=== PATIENT | male | born 1990 | race Caucasian/White ===

== ENCOUNTER → 2016-11-20 | Outpatient (CLI) | payer OTHER ==
[~2016-11-20] MED LIST: NAPR500T PO
--- NOTE | 2016-11-20 14:27 | REP ---
Clinical: Trauma. Technique: AP, lateral, bilateral oblique views of the right hand. Findings: A boxer's fracture involving the very distal aspect of the fifth metacarpal bone is appreciated with volar angulation and overlying soft tissue swelling. A subcutaneous emphysema. Remainder examination appears normal. Impression: Boxer's fracture. Signed by Shawn Nava MD 11/20/2016 02:18 P
== END ==
LOC: M LRY 13:45
PROVIDERS: ATTEND Nurse Practitioner Family
DX: S62.366A Nondisplaced fracture of neck of fifth metacarpal bone, right hand, initial encounter for closed fracture (principal); X58.XXXA Exposure to other specified factors, initial encounter; Y93.9 Activity, unspecified; Y92.9 Unspecified place or not applicable; Y99.8 Other external cause status

== ENCOUNTER 2016-11-21 14:41 | Emergency (ER) | payer OTHER, SELFPAY ==
[~2016-11-21] VITALS: Ht 180.3 cm; Wt 65.9 kg
[2016-11-21 14:41] VITALS: BP 137/70
[2016-11-21] MEDS ORDERED: NAPR500T PO (16:02)
== END 2016-11-21 16:16 | disposition home or self-care (01) ==
LOC: M ED 14:41
DX: S62.91XA Unspecified fracture of right hand, initial encounter for closed fracture (principal); W22.09XA Striking against other stationary object, initial encounter; Y92.099 Unspecified place in other non-institutional residence as the place of occurrence of the external cause; Y93.89 Activity, other specified; Y99.9 Unspecified external cause status

== ENCOUNTER → 2020-07-29 | Outpatient (CLI) | payer OTHER, SELFPAY ==
[~2020-07-29] MED LIST changes: +NAPR-837 PO; -NAPR500T PO
== END ==
LOC: M OUTALCOH 08:29
PROVIDERS: ATTEND Psychiatry & Neurology Psychiatry
DX: F12.20 Cannabis dependence, uncomplicated (principal)

== ENCOUNTER → 2020-09-03 | Outpatient (RCR) | payer MEDICAID | LOC: M OUTALCOH 08-08 15:22 | PROVIDERS: ATTEND Psychiatry & Neurology Psychiatry | DX: F12.20 Cannabis dependence, uncomplicated (principal); Z72.0 Tobacco use ==

== ENCOUNTER 2020-09-25 09:48 | Emergency (ER) | payer MEDICAID, OTHER ==
[~2020-09-25] VITALS: Ht 180.3 cm; Wt 63.8 kg
[2020-09-25 09:48] VITALS: BP 121/62
== END 2020-09-25 10:39 | disposition home or self-care (01) ==
LOC: M ED 09:48
DX: M79.671 Pain in right foot (principal)

== ENCOUNTER 2020-09-30 15:18 | Outpatient (RCR) | payer MEDICAID | END 2020-10-04 | LOC: M OUTALCOH 15:18 | PROVIDERS: ATTEND Psychiatry & Neurology Psychiatry | DX: F12.20 Cannabis dependence, uncomplicated (principal); Z72.0 Tobacco use ==

== ENCOUNTER → 2020-10-27 | Outpatient (CLI) | payer OTHER ==
[~2020-10-27] MED LIST changes: +PROHANCE 279.3MG/ML 15ML VIAL As Ordered ONE
--- NOTE | 2020-10-27 10:13 | REP ---
INDICATION: RT FOOT PAIN SOFT TISSUE MASS BOTTOM FOOT. COMPARISON: None. TECHNIQUE: Sagittal T2 fat suppressed and proton density. Coronal proton density, STIR and fat suppressed proton density. Axial fat suppressed proton density and T1 before and after intravenous gadolinium 13 cc of ProHance was administered. FINDINGS: The technologist has placed skin markers surrounding the clinical region of interest which is on the plantar surface of the foot at the level of the head of the 4th metatarsal. In the deep subcutanea within the area of the markers placed by the technologist there is an oval-shaped 0.7 x 0.9 by 1.3 cm sized solid nodule which enhances after the administration of intravenous gadolinium. This is relatively well-circumscribed and is confined to the deep subcutanea. The cortical and marrow signal seen throughout the examination is within normal limits. There is no joint effusion. All imaged flexor and extensor tendons are intact and of normal appearing low signal throughout. IMPRESSION: There is a small enhancing nodule seen within the plantar surface of the right foot as described above. The etiology of this is uncertain. Clinical correlation is necessary. <Electronically signed by Ifeanyi Connolly > 10/27/20 [id number]
== END ==
LOC: M RAD 10-13 13:34
PROVIDERS: ATTEND Podiatrist
DX: R22.41 Localized swelling, mass and lump, right lower limb (principal)
CPT/HCPCS: 73720; A9576

== ENCOUNTER 2020-11-03 13:00 | Outpatient (RCR) | payer MEDICAID ==
[~2020-11-03 13:00] MED LIST changes: -PROHANCE 279.3MG/ML 15ML VIAL As Ordered ONE
== END 2020-11-04 ==
LOC: M OUTALCOH 13:00
PROVIDERS: ATTEND Psychiatry & Neurology Psychiatry
DX: F12.20 Cannabis dependence, uncomplicated (principal); Z72.0 Tobacco use

== ENCOUNTER 2020-12-03 08:45 | Outpatient (RCR) | payer MEDICAID | END 2020-12-04 | LOC: M OUTALCOH 08:45 | PROVIDERS: ATTEND Psychiatry & Neurology Psychiatry | DX: F12.20 Cannabis dependence, uncomplicated (principal); Z72.0 Tobacco use ==

== ENCOUNTER 2021-01-02 08:40 | Outpatient (RCR) | payer MEDICAID | END 2021-01-04 | LOC: M OUTALCOH 08:40 | PROVIDERS: ATTEND Psychiatry & Neurology Psychiatry | DX: F12.20 Cannabis dependence, uncomplicated (principal); Z72.0 Tobacco use ==

== ENCOUNTER 2021-01-28 08:40 | Outpatient (RCR) | payer MEDICAID | END 2021-02-03 | LOC: M OUTALCOH 08:40 | PROVIDERS: ATTEND Psychiatry & Neurology Psychiatry | DX: F12.20 Cannabis dependence, uncomplicated (principal); Z72.0 Tobacco use ==

== ENCOUNTER 2021-02-09 08:40 | Outpatient (RCR) | payer MEDICAID | END 2021-03-06 | LOC: M OUTALCOH 08:40 | PROVIDERS: ATTEND Psychiatry & Neurology Psychiatry | DX: F12.20 Cannabis dependence, uncomplicated (principal); Z72.0 Tobacco use ==